=== PATIENT | female | born 1940 | race Caucasian/White ===

== ENCOUNTER → 2016-11-26 | Outpatient (CLI) | payer MEDICARE, BC ==
[~2016-11-26] VITALS: Ht 162.6 cm; Wt 75.7 kg
[~2016-11-26] MED LIST: ADVI200C5 PO; AMLO5TAB2 PO; ASPI81TA21 PO; ATEN100T7 PO; ATOR1TAB18 PO; ATOR1TAB21 PO; BIOT50004 PO; CALC600T57 PO; CALCTAB9 PO; FISH120012 PO; K-TA10TA2 PO; KLOR1TAB69 PO; LIDO5DIS36 TD; LIDOCAINE 2% INJ 100 MG/5 ML SDV (FOR ANES.) As Ordered ONE; MIRA3350 PO; NEUR300C PO; NITR4TASL SL; NORCOTAB PO; NS 1,000 ML IV SCH; PRIL20CA PO; PROPOFOL 200 MG/20 ML VIAL As Ordered ONE; ROBA750T4 PO; SENO8.6T10 PO; SPIR25TA2 PO; SYNT112T2 PO; TYLE325T5 PO; ULTR50TA PO; VITA500055 PO; VITAD1000T PO
--- NOTE | 2016-11-26 11:30 | ROOR ---
Patient Name: Tiffanie Devries Procedure Date: 11/26/2016 10:57 AM Date of : 1940 Age: 76 Room: [facility] [place] Gender: Female Note Status: Finalized Procedure: Colonoscopy Indications: Screening for colorectal malignant neoplasm Providers: DO Ginette Moon MD: Harpal Lane MD Requesting Provider: Medicines: Propofol per Anesthesia Complications: No immediate complications. Procedure: Pre-Anesthesia Assessment: - Prior to the procedure, a History and Physical was performed, and patient medications and allergies were reviewed. The patient is competent. The risks and benefits of the procedure and the sedation options and risks were discussed with the patient. All questions were answered and informed consent was obtained. Patient identification and proposed procedure were verified by the physician, the nurse, the anesthesiologist and the fiberglass technician in the endoscopy suite. Mental Status Examination: alert and oriented. Airway Examination: normal oropharyngeal airway and neck mobility. Respiratory Examination: clear to auscultation. CV Examination: normal. Prophylactic Antibiotics: The patient does not require prophylactic antibiotics. Prior Anticoagulants: The patient has taken no previous anticoagulant or antiplatelet agents. ASA Grade Assessment: III - A patient with severe systemic disease. After reviewing the risks and benefits, the patient was deemed in satisfactory condition to undergo the procedure. The anesthesia plan was to use monitored anesthesia care (MAC). Immediately prior to administration of medications, the patient was re-assessed for adequacy to receive sedatives. The heart rate, respiratory rate, oxygen saturations, blood pressure, adequacy of pulmonary ventilation, and response to care were monitored throughout the procedure. The physical status of the patient was re-assessed after the procedure. The Colonoscope was introduced through the anus and advanced to the cecum, identified by the appendiceal orifice, ileocecal valve and palpation. The colonoscopy was performed without difficulty. The patient tolerated the procedure well. Findings: A 15 mm polyp was found in the descending colon. The polyp was carpet-like. The polyp was removed with a hot snare. Resection and retrieval were complete. The exam was otherwise without abnormality on direct and retroflexion views. Impression: - One 15 mm polyp in the descending colon, removed with a hot snare. Resected and retrieved. - The examination was otherwise normal on direct and retroflexion views. Recommendation: - Patient has a contact number available for emergencies. The signs and symptoms of potential delayed complications were discussed with the patient. Return to normal activities tomorrow. Written discharge instructions were provided to the patient. - Patient has a contact number available for emergencies. The signs and symptoms of potential delayed complications were discussed with the patient. Return to normal activities tomorrow. Written discharge instructions were provided to the patient. - Repeat colonoscopy in 5 years for surveillance based on pathology results. - Return to my office PRN. Rodrigo Cintron DO 11/26/2016 11:29:42 AM This report has been signed electronically. Number of Addenda: 0 Note Initiated On: 11/26/2016 10:57 AM Estimated Blood Loss: Estimated blood loss was minimal.
[2016-11-26 12:15] VITALS: BP 133/69
== END | disposition home or self-care (01) ==
LOC: M OPP 09:13
PROVIDERS: ATTEND Surgery
DX: Z12.11 Encounter for screening for malignant neoplasm of colon (principal); D12.4 Benign neoplasm of descending colon; I10 Essential (primary) hypertension; E78.00 Pure hypercholesterolemia, unspecified; E03.9 Hypothyroidism, unspecified; I25.10 Atherosclerotic heart disease of native coronary artery without angina pectoris; Z79.82 Long term (current) use of aspirin; Z79.899 Other long term (current) drug therapy; Z88.2 Allergy status to sulfonamides; Z88.1 Allergy status to other antibiotic agents; Z88.8 Allergy status to other drugs, medicaments and biological substances; Z95.5 Presence of coronary angioplasty implant and graft; Z87.891 Personal history of nicotine dependence; Z92.3 Personal history of irradiation

== ENCOUNTER 2016-12-19 07:49 | Day surgery (SDC) | payer MEDICARE, BC ==
[~2016-12-19] VITALS: Ht 160 cm; Wt 74.8 kg
[~2016-12-19 07:49] MED LIST changes: +BUPIVACAINE/EPIN 0.25% 30 ML VIAL As Ordered ONE; -LIDOCAINE 2% INJ 100 MG/5 ML SDV (FOR ANES.) As Ordered ONE; -NS 1,000 ML IV SCH; -PRIL20CA PO; +PRIL20CA9 PO; -PROPOFOL 200 MG/20 ML VIAL As Ordered ONE
[2016-12-19] MEDS ORDERED: LR 1,000 ML IV SCH ×3 (08:00→11:45)
[2016-12-19] MEDS ORDERED: ASPIRIN 81 MG CHEW TABLET As Ordered ONE (08:22)
[2016-12-19] MEDS ORDERED: ASPIRIN 81 MG CHEW TABLET PO ONE ×2 (08:30→09:15)
[2016-12-19] MEDS ORDERED: ROCURONIUM BROMIDE 50 MG/5 ML VIAL As Ordered ONE (09:17)
[2016-12-19] MEDS ORDERED: PROPOFOL 200 MG/20 ML VIAL As Ordered ONE (09:17)
[2016-12-19] MEDS ORDERED: ONDANSETRON 4MG/2ML VIAL (J2405) As Ordered ONE (09:17)
[2016-12-19] MEDS ORDERED: LIDOCAINE 2% INJ 100 MG/5 ML SDV (FOR ANES.) As Ordered ONE (09:17)
[2016-12-19] MEDS ORDERED: fentaNYL 100 MCG/2 ML INJECTION (J3010) As Ordered ONE ×3 (09:19→13:25)
[2016-12-19] MEDS ORDERED: MIDAZOLAM INJ 2 MG/2 ML VIAL (J2250) As Ordered ONE (09:19)
[2016-12-19] MEDS ORDERED: BUPIVACAINE/EPIN 0.25% 30 ML VIAL As Ordered ONE (10:12)
[2016-12-19] MEDS ORDERED: ePHEDrine SULFATE 25 MG/5 ML(5MG/ML) SYRINGE As Ordered ONE (10:23)
[2016-12-19] MEDS ORDERED: KETOROLAC 60 MG/2 ML VIAL (J1885) As Ordered ONE (11:13)
[2016-12-19] MEDS ORDERED: NORCO, ANEXSIA 5/325MG TABLET (HYDROcodone/ACETAMINOPHEN) PO PRN ×2 (11:45→16:45)
[2016-12-19] MEDS ORDERED: METOCLOPRAMIDE INJ 10MG/2ML VIAL (J2765) IV PRN (11:45)
[2016-12-19] MEDS ORDERED: ONDANSETRON 4MG/2ML VIAL (J2405) IV PRN (11:45)
[2016-12-19] MEDS ORDERED: MEPERIDINE INJ 25 MG/ML VIAL (J2175) IV PRN (11:45)
[2016-12-19] MEDS: fentaNYL 100 MCG/2 ML INJECTION (J3010) IV PRN ×8 (11:48→13:40)
[2016-12-19] MEDS: PERCOCET 5MG/325MG TAB PO PRN ×2 (12:22→12:44)
[2016-12-19] MEDS ORDERED: MORPHINE 2 MG/ML 1ML SYRINGE IV PRN (16:45)
[2016-12-19] MEDS ORDERED: ACETAMINOPHEN TAB 650MG DOSE (2X325MG) PO PRN (16:45)
[2016-12-19 17:30] VITALS: BP 161/81
[2016-12-19] MEDS: ONDANSETRON 4MG/2ML VIAL (J2405) IV PRN (17:51)
[2016-12-19 18:00] VITALS: BP 130/66
[2016-12-19] MEDS ORDERED: KETOROLAC 30 MG/ML VIAL (J1885) IV PRN (18:00)
[2016-12-19 18:56] VITALS: BP 135/77
[2016-12-19 20:00] VITALS: BP 116/56
[2016-12-19] MEDS ORDERED: ATORVASTATIN 20 MG TAB PO SCH (21:00)
[2016-12-19] MEDS: HEPARIN SOD (PORCINE) 5000 UNITS/ML VIAL SC SCH (21:07)
[2016-12-19] MEDS: SENOKOT S TAB PO SCH (21:07)
[2016-12-19] MEDS: OMEPRAZOLE 20 MG CAP PO SCH (21:07)
--- NOTE | 2016-12-19 21:45 | RO ---
DATE OF PROCEDURE: 12/19/2016 PREOPERATIVE DIAGNOSIS: Chronic appendicitis, symptomatic cholelithiasis. 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 PROCEDURE: Laparoscopic cholecystectomy, laparoscopic appendectomy and laparoscopic incarcerated Spigelian hernia repair. SURGEON: Dr. Rodrigo Cintron FLATBED OWNER OPERATOR: None. ANESTHESIA: General. COMPLICATIONS: None. ESTIMATED BLOOD LOSS: 5 mL. INDICATIONS FOR PROCEDURE: The patient is a 76-year-old female who has had this persistent right lower quadrant pain for about 6 months, it has been getting progressively worse. She has had multiple CAT scans all of which have showed slight inflammation of the appendix with an appendicolith, no signs of acute appendicitis. She also has a very large 2.6 cm gallstone that could be potentially causing her some pain. Due to her nonspecific findings, recommendation was to proceed with laparoscopic appendectomy and laparoscopic cholecystectomy. Risks and benefits of procedure not limited to but including bleeding, infection, hernia formation, damage to surrounding structures and possible need for further surgery were discussed in detail with the patient. Informed consent was obtained and procedure was planned. DESCRIPTION OF PROCEDURE: The patient was brought back to operating room eight. After sufficient sedation, stab incision made in left upper quadrant. Veress needle inserted and the abdomen was insufflated to 15 mmHg. Next, a 5 mm infraumbilical incision was made, 5 mm Optiview port was used to gain access to the abdomen. Once the abdomen was entered, Veress needle site was examined. There were no signs of injury. A 10 mm port was placed subxiphoid, two 5 mm ports in the right upper quadrant. Fundus of the gallbladder was grasped, elevated up towards the right shoulder. Cystic duct and cystic artery were both clearly identified. They were both doubly clipped and cut. The gallbladder was then removed from gallbladder fossa using electrocautery and then placed inside a 10 mm Endo Catch bag and left in place. Next, attention was placed on the appendix. The camera port was switched. The right lower quadrant was examined. On examining the right lower quadrant, there was a very large 3 cm defect with omentum stuck in it in the right lower quadrant. The omentum was carefully dissected free and removed. The defect appeared to be a Spigelian hernia that had not been seen on CAT scan. Next, the appendix was identified. There was a small stone in the tip of it. The appendix was carefully dissected free using Enseal. Two PDS Endoloops were then placed around the base of it to ligate it and then it was amputated using the Enseal and placed inside of an Endo Catch bag. The hernia site then had a 5 cm incision placed over top of it. A Joao-Ashok needle and #3-0 Vicryl interrupted sutures were used to reapproximate the fascial defect. The abdomen insufflation was decreased down to 10 while this was completed. All three sutures were placed with the Joao-Ashok needle, tied tightly, thus closing up that defect. Once this was completed, the two Endo Catch bags were removed from the subxiphoid port site. The abdomen was then desufflated. Skin incisions were closed with #4-0 Vicryl subcuticular sutures. The abdomen was cleaned and dried. Steri-Strips, 4 x 4 and tape were applied, thus ending procedure.
[2016-12-19 22:00] VITALS: BP 109/58
[2016-12-20 02:00] VITALS: BP 116/56
[2016-12-20 06:00] VITALS: BP 106/63
[2016-12-20] MEDS ORDERED: LEVOTHYROXINE 0.112 MG TAB (112 MCG) PO SCH (06:00)
[2016-12-20 09:00] VITALS: BP 106/63
[2016-12-20] MEDS ORDERED: POTASSIUM CHLORIDE 10 MEQ SR TABLET PO SCH (09:00)
[2016-12-20] MEDS ORDERED: ASPIRIN 81 MG ENTERIC TAB PO SCH (09:00)
[2016-12-20] MEDS ORDERED: SPIRONOLACTONE 25 MG TAB PO SCH (09:00)
[2016-12-20] MEDS ORDERED: ATENOLOL 50 MG TAB PO SCH (09:00)
[2016-12-20] MEDS ORDERED: CHLORTHALIDONE 12.5MG PER 1/2 TABLET PO SCH (09:00)
[2016-12-20] MEDS: SENOKOT S TAB PO SCH (09:00)
[2016-12-20] MEDS: HEPARIN SOD (PORCINE) 5000 UNITS/ML VIAL SC SCH (09:00)
[2016-12-20] MEDS: OMEPRAZOLE 20 MG CAP PO SCH (09:00)
[2016-12-20] MEDS ORDERED: amLODIPine 5 MG TAB PO SCH (09:00)
[2016-12-20] MEDS: ONDANSETRON 4MG/2ML VIAL (J2405) IV PRN (09:10)
[2016-12-20 10:00] VITALS: BP 99/53
--- NOTE | 2016-12-20 13:30 | DSES ---
DATE OF ADMISSION: 12/19/2016 DATE OF DISCHARGE: 12/20/2016 ADMISSION DIAGNOSIS: Chronic appendicitis, symptomatic cholelithiasis, and a right-sided incarcerated Spigelian hernia. DISCHARGE DIAGNOSIS: Chronic appendicitis, symptomatic cholelithiasis, and a right-sided incarcerated Spigelian hernia. HOSPITAL COURSE: The patient is a 76-year-old female who presented for elective laparoscopic cholecystectomy and appendectomy. During the procedure she was found to have an incarcerated right Spigelian hernia. This was also repaired laparoscopically. After surgery the plan was to go home. However, she was having too much pain and she elected to stay overnight. I kept her on regular diet, gave her an incentive spirometer to help with her oxygenation, and recommended that she get up and walk around. She made it up to the floor. She did have a hard time getting out of bed but once she got up and walked around for a little while her pain was much improved. This morning her pain again is much improved. She is tolerating diet, passing gas. No bowel movements yet. No nausea or vomiting. She is more comfortable and she is ready to be discharged home today.
== END 2016-12-20 14:00 | disposition home or self-care (01) ==
LOC: M SDC 07:49 → M MS5PR 17:25 → M SDC 12-20 14:00
PROVIDERS: ATTEND Surgery
DX: K80.12 Calculus of gallbladder with acute and chronic cholecystitis without obstruction (principal); K36 Other appendicitis; K38.1 Appendicular concretions; K43.6 Other and unspecified ventral hernia with obstruction, without gangrene; I10 Essential (primary) hypertension; I25.10 Atherosclerotic heart disease of native coronary artery without angina pectoris; E78.00 Pure hypercholesterolemia, unspecified; E03.9 Hypothyroidism, unspecified; I51.9 Heart disease, unspecified; K21.9 Gastro-esophageal reflux disease without esophagitis; Z95.5 Presence of coronary angioplasty implant and graft; Z79.899 Other long term (current) drug therapy; Z79.82 Long term (current) use of aspirin; Z92.3 Personal history of irradiation; Z88.1 Allergy status to other antibiotic agents; Z88.8 Allergy status to other drugs, medicaments and biological substances; Z88.2 Allergy status to sulfonamides
CPT/HCPCS: 44970; 47562; 49652; 88304; 96372; 96374; 96375; 96376; J0690; J1885; J2250; J2405; J3010

== ENCOUNTER → 2017-02-20 | Outpatient (CLI) | payer MEDICARE, BC ==
[~2017-02-20] MED LIST changes: -BUPIVACAINE/EPIN 0.25% 30 ML VIAL As Ordered ONE
[2017-02-20 14:39] LABS: ALBUMIN 3.6 GM/DL (3.2-5.2); ALBUMIN/GLOBULIN RATIO 1.13 (1.00-1.93); ALKALINE PHOSPHATASE 132 U/L (45-117); ALT/SGPT 31 U/L (12-78); ANION GAP 8 MEQ/L (8-16); AST/SGOT 13 U/L (15-37); BILIRUBIN,TOTAL 0.6 MG/DL (0.2-1.0); BLOOD UREA NITROGEN 22 MG/DL (7-18); CALCIUM LEVEL 8.9 MG/DL (8.8-10.2); CARBON DIOXIDE LEVEL 31 MEQ/L (21-32); CHLORIDE LEVEL 94 MEQ/L (98-107); CHOLESTEROL LEVEL 184 MG/DL (<200); CREATININE FOR GFR 0.94 MG/DL (0.55-1.02); GLOMERULAR FILTRATION RATE > 60.0 (>39); GLUCOSE, FASTING 198 MG/DL (83-110); POTASSIUM SERUM 3.9 MEQ/L (3.5-5.1); SODIUM LEVEL 133 MEQ/L (136-145); TOTAL PROTEIN 6.8 GM/DL (6.4-8.2); TRIGLYCERIDES LEVEL 141 MG/DL (<150)
== END ==
LOC: M LAB 11:31
PROVIDERS: ATTEND Internal Medicine
DX: I10 Essential (primary) hypertension (principal)

== ENCOUNTER → 2017-06-02 | Outpatient (CLI) | payer MEDICARE, BC ==
[~2017-06-02] MED LIST changes: -ATOR1TAB18 PO; +ATOR80TA59 PO; -LIDO5DIS36 TD; +LIDO5DIS41 TD; -ULTR50TA PO; +ULTR50TA8 PO
--- NOTE | 2017-06-02 12:27 | REP ---
PELVIC SONOGRAPHY: HISTORY: Vaginal bleeding. Postmenopausal bleeding. Family history of ovarian carcinoma. FINDINGS: Transabdominal and transvaginal scanning are performed. Uterine dimensions are 4.4 x 2.1 x 3.9 cm. There is a small sliver of endometrial fluid but no visible endometrial thickening is seen. No polyp is appreciated. There is a small focal shadowing calcification in the left side of the uterus. The left ovary could not be identified transabdominal or transvaginally. No left adnexal mass or cyst is seen. The right ovary is somewhat prominent size measuring 4.4 x 2.5 x 2.1 cm. It contains a complex cystic area 3.0 x 1.5 x 1.5 cm containing a 1.9 x 1.4 x 1.2 cm lobulated solid appearing echogenic area. IMPRESSION: Complex small mass right ovary. Left ovary could not be identified. There is a small quantity of endometrial fluid seen. No other morphologic abnormality.
== END ==
LOC: M WHC 09:38
PROVIDERS: ATTEND Nurse Practitioner Women's Health
DX: N95.0 Postmenopausal bleeding (principal); R19.09 Other intra-abdominal and pelvic swelling, mass and lump

== ENCOUNTER → 2017-06-10 | Outpatient (CLI) | payer MEDICARE, BC ==
[2017-06-12 09:54] LABS: CARCINOEMBRYONIC ANTIGEN 6.8 NG/ML (<2.5)
[2017-06-12 10:23] LABS: CA 125 16.1 U/ML (<30.2)
== END ==
LOC: M LAB 11:23
PROVIDERS: ATTEND Nurse Practitioner Women's Health
DX: N95.0 Postmenopausal bleeding (principal); Z80.41 Family history of malignant neoplasm of ovary

== ENCOUNTER → 2017-06-30 | Outpatient (CLI) | payer MEDICARE, BC ==
[2017-06-30 17:29] LABS: CALCIUM LEVEL 8.9 MG/DL (8.8-10.2); CREATININE FOR GFR 1.25 MG/DL (0.55-1.02); GLOMERULAR FILTRATION RATE 44.5 (>39); POTASSIUM SERUM 3.6 MEQ/L (3.5-5.1)
== END ==
LOC: M LAB 16:14
PROVIDERS: ATTEND Obstetrics & Gynecology
DX: N39.46 Mixed incontinence (principal)

== ENCOUNTER → 2017-07-06 | Outpatient (CLI) | payer MEDICARE, BC ==
--- NOTE | 2017-07-06 14:22 | REP ---
ULTRASOUND URINARY BLADDER: Real-time sonographic evaluation of the urinary bladder is performed. The urinary bladder is only minimally distended limiting evaluation. It measures 4.3 x 3.8 x 4.2 cm for a volume of 36 mL. Postvoid residual is 10 mL. No gross bladder mass or calculus is seen. IMPRESSION: Suboptimal exam due to suboptimal bladder distention. No gross mass or calculus.
== END ==
LOC: M WHC 11:27
PROVIDERS: ATTEND Obstetrics & Gynecology
DX: N81.11 Cystocele, midline (principal); N39.46 Mixed incontinence

== ENCOUNTER → 2017-07-14 | Outpatient (CLI) | payer MEDICARE, BC ==
[~2017-07-14] MED LIST changes: +GASTROGRAFIN SOLUTION 30ML (Q9963) As Ordered ONE; +ISOVUE-370 76% 100ML VIAL (Q9967) As Ordered ONE
--- NOTE | 2017-07-14 15:46 | REP ---
CT abdomen and pelvis with IV contrast: History: Cystocele. Comparison CT study October 28, 2016. CT contrast dose: 100 ml of Isovue [address] findings: Digital project administrative assistant radiograph shows clips in the right upper quadrant. The lung bases are clear. The liver and spleen are normal in size and homogeneous in texture. No biliary ductal dilation is observed. The pancreas is unremarkable. No adrenal lesion is seen. The kidneys enhance symmetrically are morphologically intact. Normal caliber aorta is seen. No retroperitoneal mass or adenopathy is observed. Small and large intestinal bowel loops are normal in the upper abdomen. There is a right-sided spigelian hernia transmitting some abdominal fat through a defect in the anterolateral abdominal wall 3.7 cm in right to left dimension by 2.4 cm craniocaudal. The bowel is not involved in this hernia. The patient relates previous appendectomy. There are two undigested tablets in the cecum, one of which is in the area of the appendiceal stump. There is a large extra pelvic lipoma again seen deep to the gluteus cely and minimus muscles. This measures 14.8 cm craniocaudal by 10.3 cm anteroposterior by 5.6 cm medial to lateral. No ovarian lesion is seen. No uterine mass lesion is observed. There is prolapse of the pelvic floor, moderate in degree involving the base of the bladder, the cervix, uterus and vagina. On the supine images, there is 5.9 cm of prolapse of these structures beyond the plane between the coccyx and the inferior aspect of the symphysis pubis. This is more pronounced than on the comparison CT study. No pelvic mass or adenopathy is seen. Impression: There is fairly advanced pelvic floor relaxation and prolapse involving the bladder, vagina, uterus, cervix and rectum. There is a right spigelian hernia. A right subgluteal lipoma is again seen. Gallbladder and appendix are surgically absent. Signed by Emanuel Schwartz MD 07/14/2017 05:20 P
== END ==
LOC: M RAD 12:28
PROVIDERS: ATTEND Obstetrics & Gynecology
DX: N39.46 Mixed incontinence (principal); N81.11 Cystocele, midline; K62.3 Rectal prolapse; K43.9 Ventral hernia without obstruction or gangrene; Z90.49 Acquired absence of other specified parts of digestive tract
CPT/HCPCS: 74177; Q9963; Q9967

== ENCOUNTER 2017-07-22 10:46 | Outpatient (CLI) | payer MEDICARE, BC ==
[~2017-07-22] VITALS: Ht 160 cm; Wt 74.8 kg
[~2017-07-22 10:46] MED LIST changes: -GASTROGRAFIN SOLUTION 30ML (Q9963) As Ordered ONE; -ISOVUE-370 76% 100ML VIAL (Q9967) As Ordered ONE
[2017-07-22] MEDS ORDERED: NS 1,000 ML IV ONE (11:00)
[2017-07-22] MEDS ORDERED: LIDOCAINE 2% INJ 100 MG/5 ML SDV (FOR ANES.) As Ordered ONE (12:18)
[2017-07-22] MEDS ORDERED: PROPOFOL 200 MG/20 ML VIAL As Ordered ONE (12:18)
--- NOTE | 2017-07-22 12:28 | ROOR ---
Patient Name: Tiffanie Devries Procedure Date: 07/22/2017 12:17 PM Date of : 1940 Age: 77 Room: [facility] Gender: Female Note Status: Finalized Procedure: Upper GI endoscopy Indications: Preoperative assessment Providers: DO Ginette Moon MD: Harpal Lane MD Requesting Provider: Medicines: Propofol per Anesthesia Complications: No immediate complications. Procedure: Pre-Anesthesia Assessment: - Prior to the procedure, a History and Physical was performed, and patient medications and allergies were reviewed. The patient is competent. The risks and benefits of the procedure and the sedation options and risks were discussed with the patient. All questions were answered and informed consent was obtained. Patient identification and proposed procedure were verified by the physician, the nurse, the anesthesiologist and the soldering technician in the endoscopy suite. Mental Status Examination: alert and oriented. Airway Examination: normal oropharyngeal airway and neck mobility. Respiratory Examination: clear to auscultation. CV Examination: normal. Prophylactic Antibiotics: The patient does not require prophylactic antibiotics. Prior Anticoagulants: The patient has taken no previous anticoagulant or antiplatelet agents. ASA Grade Assessment: II - A patient with mild systemic disease. After reviewing the risks and benefits, the patient was deemed in satisfactory condition to undergo the procedure. The anesthesia plan was to use monitored anesthesia care (MAC). Immediately prior to administration of medications, the patient was re-assessed for adequacy to receive sedatives. The heart rate, respiratory rate, oxygen saturations, blood pressure, adequacy of pulmonary ventilation, and response to care were monitored throughout the procedure. The physical status of the patient was re-assessed after the procedure. The Endoscope was introduced through the mouth, and advanced to the third part of duodenum. The upper GI endoscopy was accomplished without difficulty. The patient tolerated the procedure well. Findings: Patchy nodular mucosa was found in the gastric body. Biopsies were taken with a cold forceps for histology. Estimated blood loss was minimal. A small hiatal hernia was present. Impression: - Nodular mucosa in the gastric body. Biopsied. - Small hiatal hernia. Recommendation: - Patient has a contact number available for emergencies. The signs and symptoms of potential delayed complications were discussed with the patient. Return to normal activities tomorrow. Written discharge instructions were provided to the patient. - Telephone my office for pathology results in 1 week. Rodrigo Cintron DO 07/22/2017 12:28:47 PM This report has been signed electronically. Number of Addenda: 0 Note Initiated On: 07/22/2017 12:17 PM Estimated Blood Loss: Estimated blood loss: none.
[2017-07-22 12:57] VITALS: BP 130/83
== END 2017-07-22 12:59 | disposition home or self-care (01) ==
LOC: M OPP 10:46
PROVIDERS: ATTEND Surgery
DX: Z01.818 Encounter for other preprocedural examination (principal); K44.9 Diaphragmatic hernia without obstruction or gangrene; K31.89 Other diseases of stomach and duodenum; K21.9 Gastro-esophageal reflux disease without esophagitis; I11.9 Hypertensive heart disease without heart failure; E78.00 Pure hypercholesterolemia, unspecified; E03.9 Hypothyroidism, unspecified; Z95.5 Presence of coronary angioplasty implant and graft; Z87.891 Personal history of nicotine dependence; Z79.899 Other long term (current) drug therapy; Z79.82 Long term (current) use of aspirin; Z88.8 Allergy status to other drugs, medicaments and biological substances; Z88.1 Allergy status to other antibiotic agents; Z88.2 Allergy status to sulfonamides

== ENCOUNTER → 2017-08-03 | Outpatient (CLI) | payer MEDICARE, BC ==
[2017-08-03 09:40] LABS: MEAN CORPUSCULAR HEMOGLOBIN 30.2 pg (27.0-33.0); MEAN CORPUSCULAR HGB CONC 34.8 g/dl (32.0-36.5); RED CELL DISTRIBUTION WIDTH 12.4 % (11.5-14.5); WHITE BLOOD COUNT 7.8 K/mm3 (4.0-10.0)
[2017-08-03 10:04] LABS: ALBUMIN 3.7 GM/DL (3.2-5.2); ALBUMIN/GLOBULIN RATIO 1.12 (1.00-1.93); BILIRUBIN,TOTAL 0.8 MG/DL (0.2-1.0); CALCIUM LEVEL 9.1 MG/DL (8.8-10.2); CREATININE FOR GFR 1.15 MG/DL (0.55-1.02); POTASSIUM SERUM 3.6 MEQ/L (3.5-5.1)
== END ==
LOC: M LAB 09:06
PROVIDERS: ATTEND Internal Medicine
DX: I10 Essential (primary) hypertension (principal); Z79.899 Other long term (current) drug therapy

== ENCOUNTER → 2017-08-18 | Outpatient (REF) | payer MEDICARE, BC | LOC: M LAB REF 11:57 | PROVIDERS: ATTEND Nurse Practitioner Women's Health | DX: N39.0 Urinary tract infection, site not specified (principal) ==

== ENCOUNTER → 2017-10-22 | Outpatient (CLI) | payer MEDICARE, BC ==
[2017-10-22 11:38] LABS: FREE T4 1.77 NG/DL (0.76-1.46)
== END ==
LOC: M LAB 09:27
PROVIDERS: ATTEND Internal Medicine Endocrinology, Diabetes & Metabolism
DX: M85.89 Other specified disorders of bone density and structure, multiple sites (principal); Z79.899 Other long term (current) drug therapy

== ENCOUNTER → 2017-12-14 | Outpatient (CLI) | payer MEDICARE, BC ==
[2017-12-14 10:01] LABS: FREE T4 1.37 NG/DL (0.76-1.46)
== END ==
LOC: M LAB 08:34
DX: E89.0 Postprocedural hypothyroidism (principal)
CPT/HCPCS: 84443

== ENCOUNTER → 2018-03-03 | Outpatient (REF) | payer MEDICARE, BC | LOC: M SFHCPLAZ 12:49 | DX: R30.0 Dysuria (principal) | CPT/HCPCS: 87186 ==

== ENCOUNTER → 2018-04-13 | Outpatient (CLI) | payer MEDICARE, BC ==
[2018-04-13 14:42] LABS: FREE T4 1.35 NG/DL (0.76-1.46)
== END ==
LOC: M LAB 13:42
DX: E89.0 Postprocedural hypothyroidism (principal)
CPT/HCPCS: 84443

== ENCOUNTER → 2018-04-20 | Outpatient (CLI) | payer MEDICARE, BC | LOC: M WHC 11:14 | DX: Z12.31 Encounter for screening mammogram for malignant neoplasm of breast (principal); M85.869 Other specified disorders of bone density and structure, unspecified lower leg; R92.8 Other abnormal and inconclusive findings on diagnostic imaging of breast; M81.0 Age-related osteoporosis without current pathological fracture | CPT/HCPCS: 77067 ==

== ENCOUNTER → 2018-04-29 | Outpatient (CLI) | payer MEDICARE, BC | LOC: M RAD 12:25 | DX: Z12.31 Encounter for screening mammogram for malignant neoplasm of breast (principal); R92.1 Mammographic calcification found on diagnostic imaging of breast | CPT/HCPCS: 77066 ==

== ENCOUNTER → 2018-09-02 | Outpatient (CLI) | payer MEDICARE, BC ==
[2018-09-02 10:16] LABS: HEMATOCRIT 41.5 % (36.0-47.0); HEMOGLOBIN 13.7 g/dl (12.0-15.5); MEAN CORPUSCULAR HEMOGLOBIN 29.5 pg (27.0-33.0); MEAN CORPUSCULAR VOLUME 89.2 fl (80.0-96.0); PLATELET COUNT, AUTOMATED 295 10^3/uL (150-450); RED BLOOD COUNT 4.65 10^6/uL (4.00-5.40); RED CELL DISTRIBUTION WIDTH 12.6 % (11.5-14.5); WHITE BLOOD COUNT 6.9 10^3/uL (4.0-10.0)
[2018-09-02 11:15] LABS: ALBUMIN 3.9 GM/DL (3.2-5.2); ALBUMIN/GLOBULIN RATIO 1.34 (1.00-1.93); ALKALINE PHOSPHATASE 188 U/L (45-117); ALT/SGPT 23 U/L (12-78); ANION GAP 7 MEQ/L (8-16); AST/SGOT 16 U/L (7-37); BILIRUBIN,TOTAL 0.9 MG/DL (0.2-1.0); BLOOD UREA NITROGEN 18 MG/DL (7-18); CALCIUM LEVEL 9.4 MG/DL (8.8-10.2); CARBON DIOXIDE LEVEL 31 MEQ/L (21-32); CHLORIDE LEVEL 100 MEQ/L (98-107); CHOLESTEROL LEVEL 172 MG/DL (<200); CHOLESTEROL RISK RATIO 2.915 (<5); CREATININE FOR GFR 1.21 MG/DL (0.55-1.30); GLOMERULAR FILTRATION RATE 46.1 (>39); GLUCOSE, FASTING 121 MG/DL (70-100); HDL CHOLESTEROL 59 MG/DL (>40); LDL CHOLESTEROL 85 MG/DL (<100); MAGNESIUM LEVEL 1.9 MG/DL (1.8-2.4); NON-HDL-C 113 MG/DL; POTASSIUM SERUM 4.1 MEQ/L (3.5-5.1); SODIUM LEVEL 138 MEQ/L (136-145); TOTAL PROTEIN 6.8 GM/DL (6.4-8.2); TRIGLYCERIDES LEVEL 141 MG/DL (<150)
[2018-09-02 11:44] LABS: ESTIMATED AVERAGE GLUCOSE 134 MG/DL (60-110); HEMOGLOBIN A1c 6.3 %
== END ==
LOC: M LAB 09:15
DX: Z79.899 Other long term (current) drug therapy (principal); I10 Essential (primary) hypertension; R73.01 Impaired fasting glucose; E78.00 Pure hypercholesterolemia, unspecified
CPT/HCPCS: 83735

== ENCOUNTER → 2018-10-27 | Outpatient (CLI) | payer MEDICARE, BC ==
[2018-10-27 09:27] LABS: TOTAL 25(OH) VITAMIN D 70.9 NG/ML (30.0-100.0)
== END ==
LOC: M LAB 08:23
DX: E89.0 Postprocedural hypothyroidism (principal); M85.89 Other specified disorders of bone density and structure, multiple sites
CPT/HCPCS: 84443

== ENCOUNTER → 2019-03-21 | Outpatient (CLI) | payer MEDICARE, BC ==
[~2019-03-21] MED LIST changes: -AMLO5TAB2 PO; +AMLO5TAB6 PO; +HYDR-3715 PO; -NORCOTAB PO; +SPIR-10 PO; -SPIR25TA2 PO
[2019-03-21 10:45] LABS: HEMOGLOBIN A1c 6.9 %
[2019-03-21 10:58] LABS: ALBUMIN 3.7 GM/DL (3.2-5.2); BILIRUBIN,TOTAL 0.8 MG/DL (0.2-1.0); CALCIUM LEVEL 9.5 MG/DL (8.8-10.2); CHOLESTEROL RISK RATIO 3.379 (<5); CREATININE FOR GFR 1.22 MG/DL (0.55-1.30); GLOMERULAR FILTRATION RATE 45.6 (>39); MAGNESIUM LEVEL 1.6 MG/DL (1.8-2.4); POTASSIUM SERUM 4.1 MEQ/L (3.5-5.1); TOTAL PROTEIN 6.8 GM/DL (6.4-8.2)
[2019-03-21 11:05] LABS: MALB URINE SIEMENS 12.3 MG/L; MAU/CREAT RATIO 6.1 MCG/MG (0.0-30.0)
== END ==
LOC: M LAB 09:08
PROVIDERS: ATTEND Internal Medicine
DX: I10 Essential (primary) hypertension (principal); R73.01 Impaired fasting glucose; E78.00 Pure hypercholesterolemia, unspecified

== ENCOUNTER → 2019-09-19 | Outpatient (CLI) | payer MEDICARE, BC ==
[~2019-09-19] MED LIST changes: +CHOL100029 PO; -VITAD1000T PO
[2019-09-19 16:02] LABS: HEMATOCRIT 41.3 % (36.0-47.0); HEMOGLOBIN 13.6 g/dl (12.0-15.5); MEAN CORPUSCULAR HEMOGLOBIN 29.6 pg (27.0-33.0); MEAN CORPUSCULAR HGB CONC 32.9 g/dl (32.0-36.5); PLATELET COUNT, AUTOMATED 319 10^3/uL (150-450); RED BLOOD COUNT 4.59 10^6/uL (4.00-5.40); WHITE BLOOD COUNT 9.6 10^3/uL (4.0-10.0)
[2019-09-19 16:35] LABS: ALBUMIN 3.9 GM/DL (3.2-5.2); BILIRUBIN,TOTAL 0.8 MG/DL (0.2-1.0); CALCIUM LEVEL 9.7 MG/DL (8.8-10.2); CHOLESTEROL RISK RATIO 2.95 (<5); CREATININE FOR GFR 1.21 MG/DL (0.55-1.30); GLOMERULAR FILTRATION RATE 45.9 (>39); MAGNESIUM LEVEL 1.8 MG/DL (1.8-2.4); POTASSIUM SERUM 3.7 MEQ/L (3.5-5.1); TOTAL PROTEIN 7.1 GM/DL (6.4-8.2)
[2019-09-19 16:43] LABS: CREATININE, URINE 70.2 MG/DL; MALB URINE SIEMENS 6.5 MG/L; MAU/CREAT RATIO 9.2 MCG/MG (0.0-30.0)
== END ==
LOC: M LAB 15:27
PROVIDERS: ATTEND Internal Medicine
DX: E78.00 Pure hypercholesterolemia, unspecified (principal); I10 Essential (primary) hypertension; R73.01 Impaired fasting glucose; Z79.899 Other long term (current) drug therapy

== ENCOUNTER → 2019-09-23 | Outpatient (CLI) | payer MEDICARE, BC ==
--- NOTE | 2019-09-23 12:34 | REP ---
BILATERAL SCREENING DIGITAL MAMMOGRAM WITH 3D TOMOSYNTHESIS: There are no palpable abnormalities or other breast complaints. The the patient states she has not had a had a clinical breast examination in over a year. The the patient states she performs self-breast examinations 12 times per year. The Tyrer Cuzick Score is: 2.6%. Comparison is 10/16/2015. The breasts are heterogeneously dense, which could obscure small masses. There is no dominant mass, micro calcific cluster or architectural distortion that would indicate malignancy. There are stable benign calcifications. There are no additional findings on 3D tomosynthesiss. There is no change from the prior study. Impression: BIRADS/ACR category 2 mammogram. Benign findings. Recommendation: Routine annual screening mammography. Because of the increased breast density, annual adjunctive breast MRI in addition to screening mammography is recommended. These can be performed at alternating six month intervals. This mammogram was interpreted with the aid of a FDA approved computer-aided detection system. A. Negative mammogram reports should not delay biopsy if a dominant or clinically suspicious mass is present. B. Not all breast cancers are identified by mammography or tomosynthesis. C. Adenosis and dense breasts may obscure an underlying neoplasm. Patient letter M1 dense breasts. Electronically Signed by Rodrigo Ventura MD 09/23/2019 12:24 P
== END ==
LOC: M WHC 09:55
PROVIDERS: ATTEND Internal Medicine
DX: Z12.31 Encounter for screening mammogram for malignant neoplasm of breast (principal); R92.1 Mammographic calcification found on diagnostic imaging of breast

== ENCOUNTER → 2019-10-18 | Outpatient (CLI) | payer MEDICARE, BC ==
[2019-10-18 14:24] LABS: CALCIUM LEVEL 9.1 MG/DL (8.8-10.2); FREE T4 1.41 NG/DL (0.76-1.46); THYROID STIMULATING HORMONE 3.54 uIU/ML (0.358-3.740)
[2019-10-18 14:30] LABS: TOTAL 25(OH) VITAMIN D 69.1 NG/ML (30.0-100.0)
== END ==
LOC: M LAB 12:58
PROVIDERS: ATTEND Nurse Practitioner Family
DX: E89.0 Postprocedural hypothyroidism (principal); M85.89 Other specified disorders of bone density and structure, multiple sites

== ENCOUNTER → 2020-03-25 | Outpatient (CLI) | payer MEDICARE, BC ==
[2020-03-25 16:14] LABS: HEMOGLOBIN A1c 6.3 %
[2020-03-25 16:28] LABS: ALBUMIN 3.6 GM/DL (3.2-5.2); BILIRUBIN,TOTAL 0.8 MG/DL (0.2-1.0); CALCIUM LEVEL 9.3 MG/DL (8.8-10.2); CHOLESTEROL RISK RATIO 3.437 (<5); CREATININE FOR GFR 1.08 MG/DL (0.55-1.30); GLOMERULAR FILTRATION RATE 52.4 (>39); MAGNESIUM LEVEL 1.8 MG/DL (1.8-2.4); THYROID STIMULATING HORMONE 2.24 uIU/ML (0.358-3.740); TOTAL PROTEIN 6.9 GM/DL (6.4-8.2)
[2020-03-25 16:33] LABS: MALB URINE SIEMENS 11.4 MG/L; MAU/CREAT RATIO 5.6 MCG/MG (0.0-30.0)
== END ==
LOC: M LAB 14:57
PROVIDERS: ATTEND Internal Medicine
DX: I10 Essential (primary) hypertension (principal); E78.00 Pure hypercholesterolemia, unspecified; E03.9 Hypothyroidism, unspecified; R73.01 Impaired fasting glucose

== ENCOUNTER → 2020-10-15 | Outpatient (CLI) | payer MEDICARE, BC ==
[~2020-10-15] MED LIST changes: +AMLO1TAB24 PO; -AMLO5TAB6 PO
[2020-10-15 09:59] LABS: HEMATOCRIT 41.9 % (36.0-47.0); HEMOGLOBIN 13.1 g/dl (12.0-15.5); MEAN CORPUSCULAR HEMOGLOBIN 28.7 pg (27.0-33.0); MEAN CORPUSCULAR HGB CONC 31.3 g/dl (32.0-36.5); MEAN CORPUSCULAR VOLUME 91.9 fl (80.0-96.0); PLATELET COUNT, AUTOMATED 312 10^3/uL (150-450); RED BLOOD COUNT 4.56 10^6/uL (4.00-5.40); WHITE BLOOD COUNT 8.3 10^3/uL (4.0-10.0)
[2020-10-15 10:26] LABS: HEMOGLOBIN A1c 6.1 %
[2020-10-15 10:34] LABS: ALBUMIN 3.4 GM/DL (3.2-5.2); BILIRUBIN,TOTAL 0.9 MG/DL (0.2-1.0); CALCIUM LEVEL 9.3 MG/DL (8.8-10.2); CHOLESTEROL RISK RATIO 3.563 (<5); CREATININE FOR GFR 1.04 MG/DL (0.55-1.30); GLOMERULAR FILTRATION RATE 54.6 (>39); MAGNESIUM LEVEL 2.2 MG/DL (1.8-2.4); TOTAL PROTEIN 6.7 GM/DL (6.4-8.2)
== END ==
LOC: M LAB 08:56
PROVIDERS: ATTEND Internal Medicine
DX: E78.00 Pure hypercholesterolemia, unspecified (principal); R73.01 Impaired fasting glucose; I10 Essential (primary) hypertension; Z79.899 Other long term (current) drug therapy

== ENCOUNTER → 2020-10-31 | Outpatient (CLI) | payer MEDICARE, BC ==
--- NOTE | 2020-10-31 11:38 | REPMRS ---
Patient History The patient states she has not had a clinical breast exam in over a year. Family history of ovarian cancer at age 87 in mother, ovarian cancer at age 72 in sister. Took unspecified hormones for 3 years. Digital Woman Screen Mammo: October 31, 2020 - Exam #: [id number] Bilateral CC and MLO view(s) were taken. Technologist: Alexia Porter, Technologist Prior study comparison: September 23, 2019, bilateral digital woman screen mammo performed at [facility]. April 29, 2018, digital mammo diagnostic bilateral, performed at [facility]. FINDINGS: There are scattered fibroglandular densities. The Volpara volumetric breast density category is:B. There has been no change in the appearance of the mammogram from the prior studies. There is a mild amount of scattered fibroglandular density which is fairly symmetric. There is no interval development of dominant mass, architectural distortion, or grouped microcalcification suggestive of malignancy. 3-D tomosynthesis shows no additional findings. Assessment: BI-RADS/ACR category 1 mammogram. Negative Mammogram. Recommendation Routine screening mammogram of both breasts in 1 year (for women over age 40). This patient's [facility] Lifetime Breast Cancer Risk is estimated at 2.3 %. This mammogram was interpreted with the aid of an FDA-approved computer-aided dectection system. Electronically Signed By: Tariq Schwartz MD 10/31/20 [id number]
== END ==
LOC: M WHC 10:18
PROVIDERS: ATTEND Internal Medicine
DX: Z12.31 Encounter for screening mammogram for malignant neoplasm of breast (principal); Z80.41 Family history of malignant neoplasm of ovary

== ENCOUNTER → 2021-03-28 | Outpatient (REF) | payer MEDICARE, BC ==
[2021-03-28 11:54] LABS: ALBUMIN 3.5 GM/DL (3.2-5.2); ALT/SGPT 24 U/L (12-78); BILIRUBIN,TOTAL 0.8 MG/DL (0.2-1.0); BLOOD UREA NITROGEN 21 MG/DL (7-18); CALCIUM LEVEL 9.7 MG/DL (8.8-10.2); CARBON DIOXIDE LEVEL 29 MEQ/L (21-32); CHLORIDE LEVEL 102 MEQ/L (98-107); CHOLESTEROL LEVEL 176 MG/DL (<200); CHOLESTEROL RISK RATIO 3.087 (<5); CREATININE FOR GFR 1.03 MG/DL (0.55-1.30); GLOMERULAR FILTRATION RATE 55.2 (>39); GLUCOSE, FASTING 95 MG/DL (70-100); HDL CHOLESTEROL 57 MG/DL (>40); LDL CHOLESTEROL 94 MG/DL (<100); MAGNESIUM LEVEL 1.9 MG/DL (1.8-2.4); MALB URINE SIEMENS 6.7 MG/L; MAU/CREAT RATIO 5.9 MCG/MG (0.0-30.0); NON-HDL-C 119 MG/DL; POTASSIUM SERUM 3.8 MEQ/L (3.5-5.1); SODIUM LEVEL 139 MEQ/L (136-145); TOTAL PROTEIN 6.4 GM/DL (6.4-8.2); TRIGLYCERIDES LEVEL 126 MG/DL (<150)
== END ==
LOC: M SFHCPLAZ 08:22
PROVIDERS: ATTEND Internal Medicine
DX: Z11.59 Encounter for screening for other viral diseases (principal); I10 Essential (primary) hypertension; E78.00 Pure hypercholesterolemia, unspecified; R73.01 Impaired fasting glucose
CPT/HCPCS: 36415; 80053; 80061; 82043; 83036; 83735; G0472

== ENCOUNTER 2021-06-22 18:07 | Emergency (ER) | payer MEDICARE, BC ==
[~2021-06-22] VITALS: Ht 165.1 cm; Wt 72.0 kg
[2021-06-22] MEDS ORDERED: METO1TAB7 (18:14)
[2021-06-22 19:27] LABS: BASO # 0.1 10^3/uL (0.0-0.2); BASO % 0.5 % (0.0-1.0); EOS # 0.2 10^3/uL (0.0-0.5); EOS % 2.1 % (0.0-3.0); HEMATOCRIT 39.8 % (36.0-47.0); HEMOGLOBIN 13.2 g/dl (12.0-15.5); LYMPH # 2.2 10^3/uL (1.5-5.0); LYMPH % 21.4 % (24.0-44.0); MEAN CORPUSCULAR HEMOGLOBIN 30.1 pg (27.0-33.0); MEAN CORPUSCULAR HGB CONC 33.2 g/dl (32.0-36.5); MEAN CORPUSCULAR VOLUME 90.7 fl (80.0-96.0); MONO # 0.9 10^3/uL (0.0-0.8); MONO % 8.9 % (2.0-8.0); NEUTROPHILS # 6.8 10^3/uL (1.5-8.5); NEUTROPHILS % 66.8 % (36.0-66.0); PLATELET COUNT, AUTOMATED 291 10^3/uL (150-450); RED BLOOD COUNT 4.39 10^6/uL (4.00-5.40); WHITE BLOOD COUNT 10.1 10^3/uL (4.0-10.0)
[2021-06-22 20:08] LABS: CREATININE FOR GFR 1.11 MG/DL (0.55-1.30); GLOMERULAR FILTRATION RATE 50.5 (>39); POTASSIUM SERUM 3.5 MEQ/L (3.5-5.1)
[2021-06-22 20:09] LABS: ALBUMIN 3.7 GM/DL (3.2-5.2); BILIRUBIN,DIRECT 0.2 MG/DL (0.0-0.2); BILIRUBIN,TOTAL 0.6 MG/DL (0.2-1.0); CALCIUM LEVEL 8.7 MG/DL (8.8-10.2); TOTAL PROTEIN 6.8 GM/DL (6.4-8.2)
--- NOTE | 2021-06-22 20:54 | REPVR ---
PROCEDURE INFORMATION: Exam: CT Abdomen And Pelvis Without Contrast Exam date and time: 06/22/2021 8:09 PM Age: 81 years old Clinical indication: Abdominal pain; Additional info: Rule out nephrolithiasis TECHNIQUE: Imaging protocol: Computed tomography of the abdomen and pelvis without contrast. Radiation optimization: All CT scans at this facility use at least one of these dose optimization techniques: automated exposure control; mA and/or kV adjustment per patient size (includes targeted exams where dose is matched to clinical indication); or iterative reconstruction. COMPARISON: CT ABD PELVIS WITH CONTRAST 07/14/2017 2:15 PM FINDINGS: Mediastinal space: A small hiatal hernia is present. Liver: 7 mm cyst segment 2 left lobe of the liver. Liver otherwise unremarkable. Gallbladder and bile ducts: There has been a cholecystectomy. Pancreas: Normal. No ductal dilation. Spleen: Normal. No splenomegaly. Adrenal glands: There is bilateral adrenal hyperplasia. Kidneys and ureters: 8 mm hyperdense foci posterior aspect of the left kidney consistent with hyperdense cysts. Clinical correlation with nonemergent ultrasound could be obtained if clinically desired. Small nonobstructive calculus lower pole left kidney. Stomach and bowel: Unremarkable. No obstruction. No mucosal thickening. Appendix: No evidence of appendicitis. Intraperitoneal space: See "Soft tissues" finding. Vasculature: The aortoiliac vessels demonstrate moderate atherosclerotic calcification. Lymph nodes: Unremarkable. No enlarged lymph nodes. Urinary bladder: Unremarkable as visualized. Reproductive: There has been a hysterectomy. Bones/joints: The spine demonstrates mild degenerative changes. Moderate central spinal stenosis L2-L3, L3-L4 and severe central spinal stenosis L4-L5. Mild central spinal stenosis L5-S1. Soft tissues: Fat containing spigelian hernia right lower quadrant. Slight increased density demonstrated in the hernia. Clinical correlation to exclude incarceration suggested. Large right buttock lipoma. Left and right inguinal hernias without incarceration. Other findings: Shallow levoscoliosis. Osteoporosis. IMPRESSION: 1. Fat containing spigelian hernia right lower quadrant. Slight increased density demonstrated in the hernia. Clinical correlation to exclude incarceration suggested. 2. There has been a cholecystectomy. 3. A small hiatal hernia is present. 4. There is bilateral adrenal hyperplasia. 5. 8 mm hyperdense foci posterior aspect of the left kidney consistent with hyperdense cysts. Clinical correlation with nonemergent ultrasound could be obtained if clinically desired. 6. There has been a hysterectomy. COMMENTS: Consistent with the [employer]'s Incidental Findings Committee white paper (J [employer] [place] [employer]iol 2018): Any incidental renal lesion less than 1 cm or classified as too small to characterize, or any incidental cystic renal lesion characterized as simple-appearing, is likely benign. No follow-up imaging is recommended for these lesions per consensus recommendations based on imaging criteria. Electronically signed by: Noe Noriega On 06/22/2021 20:53:59 PM
[2021-06-22] MEDS ORDERED: NITROFURANTOIN (MACROBID) 100 MG CAP PO ONE (22:05)
[2021-06-22] MEDS ORDERED: NITR-67 PO (22:09)
[2021-06-22 22:30] VITALS: BP 137/75
== END 2021-06-22 22:50 | disposition home or self-care (01) ==
LOC: M ED 18:07
DX: N39.0 Urinary tract infection, site not specified (principal); K43.9 Ventral hernia without obstruction or gangrene; I10 Essential (primary) hypertension; E03.9 Hypothyroidism, unspecified; E78.5 Hyperlipidemia, unspecified; K21.9 Gastro-esophageal reflux disease without esophagitis; Z87.442 Personal history of urinary calculi; Z95.5 Presence of coronary angioplasty implant and graft; Z79.899 Other long term (current) drug therapy; Z79.890 Hormone replacement therapy; Z79.82 Long term (current) use of aspirin; Z88.1 Allergy status to other antibiotic agents; Z88.2 Allergy status to sulfonamides; Z88.8 Allergy status to other drugs, medicaments and biological substances; Z87.891 Personal history of nicotine dependence

== ENCOUNTER → 2021-07-01 | Outpatient (CLI) | payer MEDICARE, BC ==
[~2021-07-01] MED LIST changes: +METO1TAB7; +NITR-67 PO
== END ==
LOC: M LAB 16:17
PROVIDERS: ATTEND Internal Medicine Endocrinology, Diabetes & Metabolism
DX: E89.0 Postprocedural hypothyroidism (principal)

== ENCOUNTER → 2021-09-04 | Outpatient (CLI) | payer MEDICARE, BC ==
[2021-09-04 12:26] LABS: FREE T4 1.13 NG/DL (0.76-1.46); THYROID STIMULATING HORMONE 8.11 uIU/ML (0.358-3.740)
== END ==
LOC: M LAB 10:38
PROVIDERS: ATTEND Internal Medicine Endocrinology, Diabetes & Metabolism
DX: E89.0 Postprocedural hypothyroidism (principal)

== ENCOUNTER → 2021-10-08 | Outpatient (CLI) | payer MEDICARE, BC ==
[2021-10-08 15:28] LABS: ALBUMIN 3.5 GM/DL (3.2-5.2); ALT/SGPT 20 U/L (12-78); BILIRUBIN,TOTAL 0.7 MG/DL (0.2-1.0); BLOOD UREA NITROGEN 20 MG/DL (7-18); CALCIUM LEVEL 9.5 MG/DL (8.8-10.2); CARBON DIOXIDE LEVEL 30 MEQ/L (21-32); CHLORIDE LEVEL 103 MEQ/L (98-107); CREATININE FOR GFR 0.92 MG/DL (0.55-1.30); GLOMERULAR FILTRATION RATE > 60.0 (>39); GLUCOSE, FASTING 93 MG/DL (70-100); MAGNESIUM LEVEL 2.2 MG/DL (1.8-2.4); POTASSIUM SERUM 3.7 MEQ/L (3.5-5.1); SODIUM LEVEL 139 MEQ/L (136-145); TOTAL PROTEIN 6.7 GM/DL (6.4-8.2)
[2021-10-08 15:34] LABS: FOLATE 9.2 NG/ML; VITAMIN B12 LEVEL 479 PG/ML
== END ==
LOC: M PLALAB 12:40
PROVIDERS: ATTEND Internal Medicine
DX: R73.01 Impaired fasting glucose (principal); I10 Essential (primary) hypertension; F09 Unspecified mental disorder due to known physiological condition
CPT/HCPCS: 36415; 80053; 82607; 82746; 83036; 83735; G0463

== ENCOUNTER → 2021-10-08 | Outpatient (REF) | payer MEDICARE, BC | LOC: M SFHCPLAZ 11:39 | PROVIDERS: ATTEND Internal Medicine | DX: R73.01 Impaired fasting glucose (principal); I10 Essential (primary) hypertension; F09 Unspecified mental disorder due to known physiological condition ==

== ENCOUNTER → 2021-11-16 | Outpatient (CLI) | payer MEDICARE, BC ==
[2021-11-16 12:44] LABS: FREE T4 0.99 NG/DL (0.76-1.46); THYROID STIMULATING HORMONE 18.2 uIU/ML (0.358-3.740)
== END ==
LOC: M LAB 11:21
PROVIDERS: ATTEND Internal Medicine Endocrinology, Diabetes & Metabolism
DX: E89.0 Postprocedural hypothyroidism (principal)

== ENCOUNTER → 2021-12-25 | Outpatient (CLI) | payer MEDICARE, BC ==
[2021-12-25 12:47] LABS: FREE T4 0.97 NG/DL (0.76-1.46); THYROID STIMULATING HORMONE 32.3 uIU/ML (0.358-3.740)
== END ==
LOC: M LAB 11:07
PROVIDERS: ATTEND Internal Medicine Endocrinology, Diabetes & Metabolism
DX: E89.0 Postprocedural hypothyroidism (principal)

== ENCOUNTER → 2022-01-01 | Outpatient (CLI) | payer MEDICARE, BC ==
[2022-01-01 10:57] LABS: FREE T4 1.21 NG/DL (0.76-1.46); THYROID STIMULATING HORMONE 14.5 uIU/ML (0.358-3.740)
== END ==
LOC: M LAB 09:21
PROVIDERS: ATTEND Internal Medicine Endocrinology, Diabetes & Metabolism
DX: E89.0 Postprocedural hypothyroidism (principal)

== ENCOUNTER → 2022-02-12 | Outpatient (CLI) | payer MEDICARE, BC ==
[2022-02-12 14:28] LABS: FREE T4 1.69 NG/DL (0.76-1.46); THYROID STIMULATING HORMONE 1.32 uIU/ML (0.358-3.740)
== END ==
LOC: M LAB 12:33
PROVIDERS: ATTEND Internal Medicine Endocrinology, Diabetes & Metabolism
DX: E89.0 Postprocedural hypothyroidism (principal)

== ENCOUNTER → 2022-02-25 | Outpatient (CLI) | payer BC, MEDICARE | LOC: M WHC 15:14 | PROVIDERS: ATTEND Internal Medicine | DX: Z12.31 Encounter for screening mammogram for malignant neoplasm of breast (principal); Z78.0 Asymptomatic menopausal state; Z80.41 Family history of malignant neoplasm of ovary; Z92.29 Personal history of other drug therapy ==

== ENCOUNTER → 2022-04-02 | Outpatient (CLI) | payer MEDICARE ==
[2022-04-02 09:45] LABS: BASO # 0.1 10^3/uL (0.0-0.2); BASO % 0.5 % (0.0-1.0); EOS # 0.3 10^3/uL (0.0-0.5); EOS % 2.3 % (0.0-3.0); HEMATOCRIT 40.4 % (36.0-47.0); HEMOGLOBIN 13.3 g/dl (12.0-15.5); LYMPH # 1.2 10^3/uL (1.5-5.0); LYMPH % 10.5 % (24.0-44.0); MEAN CORPUSCULAR HEMOGLOBIN 30.4 pg (27.0-33.0); MEAN CORPUSCULAR HGB CONC 32.9 g/dl (32.0-36.5); MEAN CORPUSCULAR VOLUME 92.4 fl (80.0-96.0); MONO # 0.9 10^3/uL (0.0-0.8); NEUTROPHILS # 9.1 10^3/uL (1.5-8.5); NEUTROPHILS % 78.3 % (36.0-66.0); PLATELET COUNT, AUTOMATED 317 10^3/uL (150-450); RED BLOOD COUNT 4.37 10^6/uL (4.00-5.40); WHITE BLOOD COUNT 11.6 10^3/uL (4.0-10.0)
[2022-04-02 10:26] LABS: CREATININE, URINE 60.4 MG/DL; MALB URINE SIEMENS 6.8 MG/L; MAU/CREAT RATIO 11.2 MCG/MG (0.0-30.0)
[2022-04-02 10:31] LABS: ALBUMIN 3.4 GM/DL (3.2-5.2); BILIRUBIN,TOTAL 0.9 MG/DL (0.2-1.0); CALCIUM LEVEL 9.4 MG/DL (8.8-10.2); CHOLESTEROL RISK RATIO 3.351 (<5); CREATININE FOR GFR 1.1 MG/DL (0.55-1.30); MAGNESIUM LEVEL 1.9 MG/DL (1.8-2.4); POTASSIUM SERUM 3.7 MEQ/L (3.5-5.1); TOTAL PROTEIN 6.6 GM/DL (6.4-8.2)
== END ==
LOC: M LAB 09:16
PROVIDERS: ATTEND Internal Medicine
DX: I10 Essential (primary) hypertension (principal); E78.00 Pure hypercholesterolemia, unspecified; K21.9 Gastro-esophageal reflux disease without esophagitis; R73.01 Impaired fasting glucose

== ENCOUNTER → 2022-04-16 | Outpatient (CLI) | payer MEDICARE, BC ==
[2022-04-16 14:53] LABS: FREE T4 1.2 NG/DL (0.76-1.46); THYROID STIMULATING HORMONE 3.77 uIU/ML (0.358-3.740)
== END ==
LOC: M LAB 13:44
PROVIDERS: ATTEND Internal Medicine Endocrinology, Diabetes & Metabolism
DX: E89.0 Postprocedural hypothyroidism (principal)

== ENCOUNTER → 2022-08-28 | Outpatient (REF) | payer MEDICARE, BC | LOC: M LAB REF 16:13 | PROVIDERS: ATTEND Physician Assistant | DX: R52 Pain, unspecified (principal) ==

== ENCOUNTER → 2023-01-16 | Outpatient (CLI) | payer MEDICARE, BC ==
[2023-01-16 12:55] LABS: HEMOGLOBIN A1c 5.6 % (4.0-6.0)
== END ==
LOC: M LAB 12:01
PROVIDERS: ATTEND Internal Medicine Endocrinology, Diabetes & Metabolism
DX: E89.0 Postprocedural hypothyroidism (principal); R73.02 Impaired glucose tolerance (oral)

== ENCOUNTER → 2023-01-19 | Outpatient (CLI) | payer MEDICARE, BC ==
[2023-01-19 16:17] LABS: HEMATOCRIT 42.7 % (36.0-47.0); HEMOGLOBIN 13.8 g/dl (12.0-15.5); MEAN CORPUSCULAR HEMOGLOBIN 30.4 pg (27.0-33.0); MEAN CORPUSCULAR HGB CONC 32.3 g/dl (32.0-36.5); MEAN CORPUSCULAR VOLUME 94.1 fl (80.0-96.0); PLATELET COUNT, AUTOMATED 258 10^3/uL (150-450); RED BLOOD COUNT 4.54 10^6/uL (4.00-5.40); WHITE BLOOD COUNT 7.2 10^3/uL (4.0-10.0)
[2023-01-19 16:39] LABS: CREATININE, URINE 196.1 MG/DL
[2023-01-19 16:41] LABS: C REACTIVE PROTEIN QUANTITATIV < 0.40 MG/DL (<1.0)
[2023-01-19 16:42] LABS: TOTAL 25(OH) VITAMIN D 73.9 NG/ML (20.0-100.0)
[2023-01-19 16:43] LABS: ALBUMIN 3.7 G/DL (3.2-5.2); ALKALINE PHOSPHATASE 112 U/L (46-116); ALT/SGPT 13 U/L (7.0-40); AST/SGOT 14 U/L (<34); BILIRUBIN,TOTAL 0.9 MG/DL (0.3-1.2); BLOOD UREA NITROGEN 31 MG/DL (9-23); CALCIUM LEVEL 10.4 MG/DL (8.3-10.6); CARBON DIOXIDE LEVEL 34 MMOL/L (20-31); CHLORIDE LEVEL 103 MMOL/L (98-107); CHOLESTEROL LEVEL 197 MG/DL (<200); CHOLESTEROL RISK RATIO 2.85 (<5); CREATININE FOR GFR 1.02 MG/DL (0.55-1.30); GLOMERULAR FILTRATION RATE 55.5 (>32); GLUCOSE, FASTING 90 MG/DL (74-106); HDL CHOLESTEROL 69.1 MG/DL (>40); LDL CHOLESTEROL 107.5 MG/DL (<100); NON-HDL-C 128 MG/DL; SODIUM LEVEL 141 MMOL/L (136-145); TOTAL PROTEIN 6.6 G/DL (5.7-8.2); TRIGLYCERIDES LEVEL 102 MG/DL (<150); VITAMIN B12 LEVEL 379 PG/ML (211-911)
== END ==
LOC: M LAB 15:20
PROVIDERS: ATTEND Internal Medicine Hematology
DX: E78.00 Pure hypercholesterolemia, unspecified (principal); Z79.899 Other long term (current) drug therapy
CPT/HCPCS: 36415; 80053; 80061; 82043; 82306; 82607; 85027; 86140; G0463

== ENCOUNTER → 2023-02-27 | Outpatient (CLI) | payer MEDICARE, BC | LOC: M WHC 11:25 | PROVIDERS: ATTEND Internal Medicine Hematology | DX: Z12.31 Encounter for screening mammogram for malignant neoplasm of breast (principal); M85.851 Other specified disorders of bone density and structure, right thigh; M85.852 Other specified disorders of bone density and structure, left thigh ==

== ENCOUNTER → 2023-03-12 | Outpatient (CLI) | payer MEDICARE, BC ==
[2023-03-12 15:24] LABS: THYROID STIMULATING HORMONE 0.335 uIU/ML (0.55-4.78)
[2023-03-12 15:25] LABS: FREE T4 1.5 NG/DL (0.89-1.76)
== END ==
LOC: M LAB 13:11
PROVIDERS: ATTEND Internal Medicine Endocrinology, Diabetes & Metabolism
DX: E89.0 Postprocedural hypothyroidism (principal)

== ENCOUNTER → 2023-04-14 | Outpatient (CLI) | payer MEDICARE, BC ==
[2023-04-14 13:23] LABS: FREE T4 1.45 NG/DL (0.89-1.76); THYROID STIMULATING HORMONE 0.411 uIU/ML (0.55-4.78)
== END ==
LOC: M LAB 12:12
PROVIDERS: ATTEND Internal Medicine Hematology
DX: E03.9 Hypothyroidism, unspecified (principal)

== ENCOUNTER → 2023-04-23 | Outpatient (CLI) | payer MEDICARE, BC ==
[2023-04-23 14:19] LABS: CALCIUM LEVEL 9.3 MG/DL (8.3-10.6); CREATININE FOR GFR 1.06 MG/DL (0.55-1.30); GLOMERULAR FILTRATION RATE 53.1 (>32); POTASSIUM SERUM 3.5 MMOL/L (3.5-5.1)
[2023-04-24 12:22] LABS: MAGNESIUM LEVEL 1.6 MG/DL (1.8-2.4)
== END ==
LOC: M LAB 13:17
PROVIDERS: ATTEND Physician Assistant
DX: I11.9 Hypertensive heart disease without heart failure (principal); E83.42 Hypomagnesemia

== ENCOUNTER → 2023-05-04 | Outpatient (CLI) | payer MEDICARE, BC ==
[~2023-05-04] MED LIST changes: -K-TA10TA2 PO; +POTA-165 PO
[2023-05-04 15:15] LABS: CALCIUM LEVEL 9.4 MG/DL (8.3-10.6); CREATININE FOR GFR 1.06 MG/DL (0.55-1.30); GLOMERULAR FILTRATION RATE 53.1 (>32); MAGNESIUM LEVEL 1.8 MG/DL (1.8-2.4)
== END ==
LOC: M LAB 14:17
PROVIDERS: ATTEND Physician Assistant
DX: I11.9 Hypertensive heart disease without heart failure (principal)

== ENCOUNTER → 2023-09-28 | Outpatient (CLI) | payer MEDICARE, BC | LOC: M PLAIMG 12:27 | PROVIDERS: ATTEND Student in an Organized Health Care Education/Training Program | DX: M19.012 Primary osteoarthritis, left shoulder (principal) ==

== ENCOUNTER → 2023-11-24 | Outpatient (CLI) | payer MEDICARE, BC ==
[~2023-11-24] MED LIST changes: -BIOT50004 PO; +BIOT5CAP8 PO
[2023-11-24 15:12] LABS: FREE T4 1.45 NG/DL (0.89-1.76); THYROID STIMULATING HORMONE 1.054 uIU/ML (0.55-4.78)
== END ==
LOC: M LAB 13:59
PROVIDERS: ATTEND Internal Medicine Endocrinology, Diabetes & Metabolism
DX: E89.0 Postprocedural hypothyroidism (principal)

== ENCOUNTER → 2023-11-24 | Outpatient (CLI) | payer MEDICARE, BC ==
[2023-11-24 14:39] LABS: HEMATOCRIT 37.1 % (36.0-47.0); HEMOGLOBIN 12.3 g/dl (12.0-15.5); MEAN CORPUSCULAR HEMOGLOBIN 30.1 pg (27.0-33.0); MEAN CORPUSCULAR HGB CONC 33.2 g/dl (32.0-36.5); MEAN CORPUSCULAR VOLUME 90.9 fl (80.0-96.0); PLATELET COUNT, AUTOMATED 312 10^3/uL (150-450); RED BLOOD COUNT 4.08 10^6/uL (4.00-5.40); WHITE BLOOD COUNT 10.3 10^3/uL (4.0-10.0)
[2023-11-24 15:09] LABS: C REACTIVE PROTEIN QUANTITATIV < 0.40 MG/DL (<1.0)
[2023-11-24 15:11] LABS: ALBUMIN 3.7 G/DL (3.2-5.2); ALKALINE PHOSPHATASE 144 U/L (46-116); ALT/SGPT 12 U/L (7.0-40); AST/SGOT 9 U/L (<34); BILIRUBIN,TOTAL 1.2 MG/DL (0.3-1.2); BLOOD UREA NITROGEN 28 MG/DL (9-23); CALCIUM LEVEL 9.7 MG/DL (8.3-10.6); CARBON DIOXIDE LEVEL 31 MMOL/L (20-31); CHLORIDE LEVEL 101 MMOL/L (98-107); CHOLESTEROL LEVEL 127 MG/DL (<200); CREATININE FOR GFR 1.29 MG/DL (0.55-1.30); GLOMERULAR FILTRATION RATE 42.2 (>32); GLUCOSE, FASTING 132 MG/DL (74-106); HDL CHOLESTEROL 48.7 MG/DL (>40); LDL CHOLESTEROL 60.7 MG/DL (<100); NON-HDL-C 78.3 MG/DL; POTASSIUM SERUM 3.8 MMOL/L (3.5-5.1); SODIUM LEVEL 136 MMOL/L (136-145); TOTAL PROTEIN 6.4 G/DL (5.7-8.2); TRIGLYCERIDES LEVEL 88 MG/DL (<150)
== END ==
LOC: M LAB 14:02
PROVIDERS: ATTEND Internal Medicine Hematology
DX: I25.10 Atherosclerotic heart disease of native coronary artery without angina pectoris (principal); E89.0 Postprocedural hypothyroidism

== ENCOUNTER → 2023-12-30 | Outpatient (CLI) | payer MEDICARE, BC | LOC: M WHC 09:30 | PROVIDERS: ATTEND Nurse Practitioner Family | DX: Z12.31 Encounter for screening mammogram for malignant neoplasm of breast (principal) ==

== ENCOUNTER → 2024-01-25 | Outpatient (REF) | payer MEDICARE, BC | LOC: M SFHCDERM 07:38 | PROVIDERS: ATTEND Physician Assistant | DX: L82.1 Other seborrheic keratosis (principal) ==

== ENCOUNTER → 2024-03-22 | Outpatient (CLI) | payer MEDICARE, BC | LOC: M WHC 12:48 | PROVIDERS: ATTEND Nurse Practitioner Family | DX: Z12.31 Encounter for screening mammogram for malignant neoplasm of breast (principal) ==

== ENCOUNTER → 2024-04-13 | Outpatient (CLI) | payer MEDICARE, BC ==
[2024-04-13 14:43] LABS: FREE T4 1.34 NG/DL (0.89-1.76)
[2024-04-13 14:44] LABS: THYROID STIMULATING HORMONE 16.819 uIU/ML (0.55-4.78)
== END ==
LOC: M LAB 13:24
PROVIDERS: ATTEND Internal Medicine Endocrinology, Diabetes & Metabolism
DX: E89.0 Postprocedural hypothyroidism (principal)

== ENCOUNTER → 2024-04-18 | Outpatient (CLI) | payer MEDICARE, BC ==
[2024-04-18 13:19] LABS: FREE T4 1.14 NG/DL (0.89-1.76); THYROID STIMULATING HORMONE 21.276 uIU/ML (0.55-4.78)
== END ==
LOC: M LAB 11:47
PROVIDERS: ATTEND Nurse Practitioner Family
DX: E89.0 Postprocedural hypothyroidism (principal)

== ENCOUNTER → 2024-05-17 | Outpatient (CLI) | payer MEDICARE, BC ==
[2024-05-17 14:31] LABS: CALCIUM LEVEL 9.8 MG/DL (8.3-10.6); CREATININE FOR GFR 1.09 MG/DL (0.55-1.30); GLOMERULAR FILTRATION RATE 51.3 (>32); POTASSIUM SERUM 3.2 MMOL/L (3.5-5.1)
== END ==
LOC: M LAB 13:14
PROVIDERS: ATTEND Physician Assistant
DX: I11.9 Hypertensive heart disease without heart failure (principal); E89.0 Postprocedural hypothyroidism

== ENCOUNTER → 2024-10-07 | Outpatient (CLI) | payer MEDICARE, BC ==
[2024-10-07 10:53] LABS: FREE T4 1.63 NG/DL (0.89-1.76); THYROID STIMULATING HORMONE 1.214 uIU/ML (0.55-4.78)
== END ==
LOC: M LAB 09:38
PROVIDERS: ATTEND Nurse Practitioner Family
DX: E89.0 Postprocedural hypothyroidism (principal)

== ENCOUNTER → 2024-11-16 | Outpatient (CLI) | payer MEDICARE, BC ==
[2024-11-16 12:31] LABS: CALCIUM LEVEL 9.3 MG/DL (8.3-10.6); CREATININE FOR GFR 1.05 MG/DL (0.55-1.30); GLOMERULAR FILTRATION RATE 53.4 (>32); POTASSIUM SERUM 4.1 MMOL/L (3.5-5.1)
== END ==
LOC: M LAB 11:29
PROVIDERS: ATTEND Physician Assistant
DX: I11.9 Hypertensive heart disease without heart failure (principal)

== ENCOUNTER → 2024-12-02 | Outpatient (CLI) | payer MEDICARE, BC ==
[2024-12-02 15:31] LABS: ALBUMIN 3.2 G/DL (3.2-5.2); BILIRUBIN,DIRECT 0.3 MG/DL (<0.4); BILIRUBIN,TOTAL 0.9 MG/DL (0.3-1.2); CHOLESTEROL RISK RATIO 2.63 (<5); HDL CHOLESTEROL 56.5 MG/DL (>40); LDL CHOLESTEROL 72.3 MG/DL (<100); NON-HDL-C 92.5 MG/DL; TOTAL PROTEIN 6.7 G/DL (5.7-8.2)
== END ==
LOC: M LAB 13:51
PROVIDERS: ATTEND Internal Medicine Hematology
DX: E78.00 Pure hypercholesterolemia, unspecified (principal)

== ENCOUNTER → 2024-12-21 | Outpatient (REF) | payer MEDICARE, BC ==
[2024-12-21 15:33] LABS: CREATININE, URINE 113.1 MG/DL
[2024-12-21 15:34] LABS: MAU/CREAT RATIO 5.3 MCG/MG (0.0-30.0)
[2024-12-21 16:52] LABS: MAGNESIUM LEVEL 1.8 MG/DL (1.8-2.4)
[2024-12-21 16:56] LABS: FREE T4 1.61 NG/DL (0.89-1.76); THYROID STIMULATING HORMONE 1.014 uIU/ML (0.55-4.78)
== END ==
LOC: M SFHCPLAZ 11:30
PROVIDERS: ATTEND Student in an Organized Health Care Education/Training Program
DX: I10 Essential (primary) hypertension (principal); M85.869 Other specified disorders of bone density and structure, unspecified lower leg; E03.9 Hypothyroidism, unspecified

== ENCOUNTER → 2025-10-17 | Outpatient (CLI) | payer MEDICARE ==
[~2025-10-17] MED LIST changes: +LIDO1ADH93 TD; -LIDO5DIS41 TD
== END ==
LOC: M LAB 11:51
PROVIDERS: ATTEND Nurse Practitioner Family
DX: E89.0 Postprocedural hypothyroidism (principal)